=== PATIENT | female | born 1980 | race Caucasian/White ===

== ENCOUNTER 2018-09-29 04:05 | Emergency (ER) | payer SELFPAY ==
[~2018-09-29] VITALS: Ht 157.5 cm; Wt 59.0 kg
[2018-09-29] MEDS ORDERED: ACETAMINOPHEN WITH CODEINE 300/30MG TABLET PO ONE (07:30)
[2018-09-29 08:01] VITALS: BP 124/77
== END 2018-09-29 08:03 | disposition home or self-care (01) ==
LOC: ER 04:05
DX: S13.8XXA Sprain of joints and ligaments of other parts of neck, initial encounter (principal); E11.9 Type 2 diabetes mellitus without complications; Z98.890 Other specified postprocedural states; V43.52XA Car driver injured in collision with other type car in traffic accident, initial encounter; Y93.89 Activity, other specified; Y92.488 Other paved roadways as the place of occurrence of the external cause
CPT/HCPCS: 81025; 99283

== ENCOUNTER 2024-02-05 12:04 | Emergency (ER) | payer SELFPAY ==
[~2024-02-05] VITALS: Ht 147.3 cm; Wt 55.0 kg
[2024-02-05 12:12] VITALS: BP 154/80; PULSE 80; TEMP 98.6; O2SAT 99
[2024-02-05 13:21] VITALS: RESP 16
[2024-02-05] MEDS: HYDROCODONE/ACETAMINOPHEN 5/325MG TABLET PO ONE (13:21)
[2024-02-05] MEDS: BACITRACIN ZINC OINT UDPKT TOP ONE (13:27)
== END 2024-02-05 13:27 | disposition home or self-care (01) ==
LOC: ER 12:46
DX: S00.03XA Contusion of scalp, initial encounter (principal); S50.812A Abrasion of left forearm, initial encounter; E11.9 Type 2 diabetes mellitus without complications; Z98.890 Other specified postprocedural states; V98.8XXA Other specified transport accidents, initial encounter; Y93.89 Activity, other specified; Y92.89 Other specified places as the place of occurrence of the external cause; Y99.8 Other external cause status
CPT/HCPCS: 99283; Z7610